=== PATIENT | female | born 1955 | race Two or more races ===

== ENCOUNTER 2017-03-29 09:12 | Day surgery (SDC) | payer BC ==
[2017-03-29 10:15] VITALS: BMI 20.7
[2017-03-29 10:49] VITALS: TEMP 98.4
[2017-03-29 11:58] VITALS: BP 97/60; PULSE 59
--- NOTE | 2017-04-01 16:53 | PATH ---
Surgical Pathology Report Patient Name: NICO FARAH [facility]. Rec. #: [id number] /Age/Gender: 1955 (Age: 61) / F Account: [id number] Location: U-ENDOSCOPY Taken: 03/29/2017 Received: 03/29/2017 Reported: 04/01/2017 Physicians: Asa Evans M.D. Specimen(s) Received A: BX SIGMOID B: BX RECTUM Clinical History Ulcerative colitis Mild proctitis Final Diagnosis A. SIGMOID, BIOPSY: COLONIC MUCOSA WITH MILD ARCHITECTURAL DISTORTION, LAMINA PROPRIA CONGESTION AND EDEMA. B. RECTUM, BIOPSY: COLONIC MUCOSA WITH MILD CHRONIC ACTIVE COLITIS, PROMINENT LYMPHOID AGGREGATE AND MILD FIBROSIS OF LAMINA PROPRIA. COMMENT: No granuloma/dysplasia identified. Findings are consistent with known history of Inflammatory bowel disease (Ulcerative colitis). Electronically Signed Alma Sellers M.D. Gross Description A. Received in formalin, labeled "biopsy sigmoid" are 2 morales, irregular portions of soft tissue measuring 0.2 and 0.3 cm. in greatest dimension. The specimens are submitted in toto in one cassette. B. Received in formalin, labeled "biopsy rectum" is a morales, irregular portion of soft tissue measuring 0.3 cm. in greatest dimension. The specimen is submitted in toto in one cassette. 03/29/201703/29/2017
== END 2017-03-29 12:11 | disposition home or self-care (01) ==
LOC: JASU-ENDO 09:12
PROVIDERS: ATTEND Internal Medicine Gastroenterology
PROC: 0DBP8ZX Excision of Rectum, Via Natural or Artificial Opening Endoscopic, Diagnostic (ICD-10-PCS; 2017-03-29)
PROC: 0DBM8ZX Excision of Descending Colon, Via Natural or Artificial Opening Endoscopic, Diagnostic (ICD-10-PCS; principal; 2017-03-29 10:00)
DX: K51.90 Ulcerative colitis, unspecified, without complications (principal); K62.89 Other specified diseases of anus and rectum
CPT/HCPCS: 88305-TC